=== PATIENT | male | born 1955 | race Hispanic/Latino ===

== ENCOUNTER 2019-02-22 06:08 | Day surgery (SDC) | payer MEDICARE, OTHER ==
[2019-02-22] MEDS ORDERED: ECOTRIN PO ONE (06:40)
[2019-02-22 07:20] LABS: Hematocrit 40.9 % (35.5-45.6); Hemoglobin 14.1 gm/dl (11.8-15.2); Mean Corpuscular HGB Conc 34 % (32-34); Mean Corpuscular Volume 91 fl (84-94); Platelet Count 193 K/mm3 (140-440); Red Blood Count 4.49 M/mm3 (3.65-5.03); Red Cell Distribution Width 14.4 % (13.2-15.2)
[2019-02-22] MEDS: NACL 0.9% 500 ML 500 ML IV SCH ×2 (07:22→08:59)
[2019-02-22 07:35] LABS: INR 0.95 (0.87-1.13)
[2019-02-22 07:36] LABS: Partial Thromboplastin Time 25.8 Sec. (24.2-36.6)
[2019-02-22 07:41] LABS: BUN/Creatinine Ratio 18; Blood Urea Nitrogen 18 mg/dL (9-20); Calcium 9.5 mg/dL (8.4-10.2); Hemolysis Index 10
[2019-02-22] MEDS ORDERED: HEPARIN/NS 5000 UNIT/500ML(CATH LAB) 1,000 ML IR ONE (08:14)
[2019-02-22 08:30] LABS: Platelet Estimate Consistent w Auto; RBC Morphology Normal; Total Cells Counted 100
[2019-02-22] MEDS: VERSED ONE ×2 (08:58→09:01)
[2019-02-22] MEDS: CALAN ONE ×2 (08:58→09:04)
[2019-02-22] MEDS: SUBLIMAZE ONE ×2 (08:58→09:01)
[2019-02-22] MEDS: XYLOCAINE 2% INFILTRATI ONE ×2 (08:58→09:02)
[2019-02-22] MEDS: HEPARIN 10,000 UNITS/10 ML ONE ×2 (08:59→09:04)
[2019-02-22] MEDS: NITROGLYCERIN SYRINGE 3 ML ONE ×2 (08:59→09:04)
[2019-02-22 11:48] VITALS: BP 139/90
--- NOTE | 2019-02-22 12:13 | Cardiac Catherization Report ---
ADDENDUM I directly supervised the administration of moderate sedation with fentanyl and Versed from 9:01 a.m. to 9:25 a.m. JOB# [id number] SBM/NTS
--- NOTE | 2019-02-22 12:36 | Cardiac Catherization Report ---
CARDIAC CATHETERIZATION INDICATION FOR PROCEDURE: The patient is a pleasant 63-year-old gentleman with recurrent chest pain, abnormal stress test, multiple risk factors on antianginal medications, referred for left heart catheterization. Risks, benefits, and potential alternatives explained at length prior to obtaining informed consent. PROCEDURE IN DETAIL: The patient was brought to the veterinarian laboratory animal care in a postabsorptive state, prepped and draped in sterile fashion. Barrett's test of the right hand was normal. A 2 mL of 2% lidocaine was used to anesthetize the right wrist. A standard 6-Icelandic hydrophilic sheath was used to cannulate the right radial artery via modified Seldinger technique. All exchanges were performed to exchange a J-tip guidewire. JL3.5 catheter used to engage the left main. No dampening or ventricularization. Cineangiography performed in all projections. A standard 6-Icelandic hydrophilic sheath used to cannulate the right radial artery via modified Seldinger technique. All exchanges performed to exchange a J-tip guidewire. JL3.5 catheter used to engage the left main. No dampening or ventricularization. Cineangiography performed in multiple projections. JR4 catheter used to cross the aortic valve under fluoroscopic guidance. Left ventriculography performed in 30 SALEH and 30 FAROESE projections via hand injections. Catheter flushed. Manual pullback performed with continuous pressure monitoring. Catheter used to engage the right coronary. No dampening or ventricularization. Cineangiography performed in all projections. JR4 catheter used to cross the aortic valve under fluoroscopic guidance. Left ventriculography performed in 30 SALEH and 30 FAROESE projections via hand injections. Catheter flushed. Manual pullback performed with continuous pressure monitoring. Catheter used to engage the right coronary. No dampening or ventricularization. Cineangiography performed in all projections. Next, due to recurrent symptoms and hypertension, we proceeded with root aortography with a pigtail catheter in the FAROESE projection. Next, catheter was removed from the body of wire, sheath removed. Manual pressure used to achieve hemostasis. DATA: Aortic pressure is 130/70, LV pressure is 130, LVEDP of 15 mmHg. Left ventriculography reveals normal systolic performance with estimated ejection fraction of 55-60%. No evidence of aortic stenosis. The patient remained in normal sinus rhythm throughout the procedure. CORONARY ANATOMY: This is a right dominant system. Left main and left circumflex have separate ostia off of the aortic root. LAD is a moderate sized vessel, courses anterior intergroove, wraps around the apex, no significant disease in the LAD or diagonal system. Left circumflex is a moderate sized vessel, courses AV groove, distally bifurcates in the posterior and posterolateral branches. No discrete stenosis noted. Right coronary is a moderate sized vessel, courses AV groove, distally bifurcates in the posterior and posterolateral branch. No discrete stenosis in the right dominant right coronary. Left ventriculography reveals normal systolic performance with estimated ejection fraction of 55-60%. No evidence of aortic stenosis. Root aortography reveals normal contour, no evidence of dissection or penetrating aortic ulcer. ASSESSMENT: 1. No angiographic evidence of significant epicardial coronary disease in this right dominant system. 2. Normal left ventricular systolic performance with estimated ejection fraction of 55-60%. 3. No evidence of aortic stenosis. 4. Normal root aortography without evidence of dissection, penetrating aortic ulcer, or aortic insufficiency. 5. Normal left ventricular end-diastolic pressure. The patient is clinically stable, chest pain free. Aggressive blood pressure control. Standard radial care. Results of procedure explained in length to the patient and family. All questions and concerns were addressed. Follow up with me in the office. JOB# [id number] CHITRA/ISABEL
--- NOTE | 2019-02-22 13:30 | Short Stay Summary ---
Short Stay Documentation Date of service: 02/22/19 - History H&P: obtained from office - Allergies and Medications Current Medications: Allergies Sulfa (Sulfonamide Antibiotics) Allergy (Intermediate, Verified 02/22/19 06:40) Hives Home Medications Medication Instructions Recorded Confirmed Last Taken Type Acyclovir [Zovirax Tab] 400 mg PO QDAY 02/22/19 02/22/19 1 Day Ago History ~02/21/19 Allopurinol [Zyloprim] 300 mg PO DAILY 02/22/19 02/22/19 1 Day Ago History ~02/21/19 Furosemide [Lasix TAB] 20 mg PO DAILY 02/22/19 02/22/19 1 Day Ago History ~02/21/19 Gabapentin [Neurontin] 300 mg PO BID 02/22/19 02/22/19 1 Day Ago History ~02/21/19 Simvastatin 02/22/19 1 Day Ago History ~02/21/19 Simvastatin 20 mg PO DAILY 02/22/19 02/22/19 1 Day Ago History ~02/21/19 Tamsulosin [Flomax] 0.4 mg PO QDAY 02/22/19 02/22/19 1 Day Ago History ~02/21/19 amLODIPine [Norvasc] 10 mg PO DAILY 02/22/19 02/22/19 1 Day Ago History ~02/21/19 metFORMIN XR [Glucophage XR] 500 mg PO DAILY 02/22/19 02/22/19 1 Day Ago History ~02/21/19 tiZANidine [Zanaflex 4mg TAB] 4 mg PO BID 02/22/19 02/22/19 1 Day Ago History ~02/21/19 - Brief post op/procedure progress note Date of procedure: 02/22/19 Pre-op diagnosis: abnormal stress test Post-op diagnosis: same Procedure: C - see dictated cath report Anesthesia: local Estimated blood loss: none Condition: stable - Disposition Condition at discharge: Good Disposition: DC-01 TO HOME OR SELFCARE - Discharge Diagnoses (1) Normal coronary arteries Status: Chronic (2) HTN (hypertension) Status: Chronic (3) Diabetes Status: Chronic (4) Obesity Status: Chronic Short Stay Discharge Plan Activity: advance as tolerated Diet: low fat, low cholesterol, low salt, diabetic Wound: open to air, keep clean and dry, per your surgeon's advice Follow up with: SKY SHERWOOD MD [Primary Care Provider] - 7 Days DA ROONEY MD [Staff Physician] - 7 Days
== END 2019-02-22 12:08 | disposition home or self-care (01) ==
LOC: CATHLABREC 06:08
PROVIDERS: ATTEND Internal Medicine
DX: R07.89 Other chest pain (principal); R94.39 Abnormal result of other cardiovascular function study; I10 Essential (primary) hypertension; E11.9 Type 2 diabetes mellitus without complications; E66.9 Obesity, unspecified; E78.00 Pure hypercholesterolemia, unspecified; M19.90 Unspecified osteoarthritis, unspecified site; Z80.8 Family history of malignant neoplasm of other organs or systems; Z79.899 Other long term (current) drug therapy; Z88.2 Allergy status to sulfonamides; Z79.84 Long term (current) use of oral hypoglycemic drugs; Z68.38 Body mass index [BMI] 38.0-38.9, adult; Z82.61 Family history of arthritis
CPT/HCPCS: 36415; 80048; 85007; 85025; 85610; 85730; 93005; 93010; 93458; 99156; 99157; C1894; J1644; J2250; J3010; J7040; Q9967

== ENCOUNTER 2019-03-14 08:10 | Outpatient (CLI) | payer MEDICARE, OTHER ==
--- NOTE | 2019-03-14 10:14 | Cat Scan Report ---
CTA CHEST: HISTORY: Dilated aortic root. COMPARISON: none. TECHNIQUE: Helical CT in 1.25mm intervals following IV contrast. Sagittal and coronal reformatted images. Rotational MIP images. FINDINGS: Contrast bolus is satisfactory. Thyroid gland: Normal. Tracheobronchial tree: Normal. Esophagus: Normal. Heart: Normal. Pericardium: Normal. Mediastinum: The ascending aorta is dilated up to 4.3 cm on the sagittal and coronal reformatted images. The descending thoracic aorta measures 2.7 cm at the same level. The aortic arch measures 3.4 cm. There is no evidence for significant atherosclerotic disease or dissection. A moderate hiatal hernia is noted posterior to the heart. No mediastinal mass or adenopathy. Lung Beauchamp: Normal. Pleural Spaces: Normal. Musculoskeletal: Intact. Moderate thoracic spondylosis. Limited images of the upper abdomen demonstrate one or 2 tiny calcified gallstones in the neck of the gallbladder. No biliary dilatation IMPRESSION: Mild dilatation of the ascending aorta measuring 4.3 cm. Moderate hiatal hernia. Cholelithiasis.
== END 2019-03-14 08:11 | disposition home or self-care (01) ==
LOC: CT 08:10
PROVIDERS: ATTEND Internal Medicine
DX: K44.9 Diaphragmatic hernia without obstruction or gangrene (principal); K80.20 Calculus of gallbladder without cholecystitis without obstruction; I77.810 Thoracic aortic ectasia; M47.814 Spondylosis without myelopathy or radiculopathy, thoracic region; E11.9 Type 2 diabetes mellitus without complications; I10 Essential (primary) hypertension; E78.00 Pure hypercholesterolemia, unspecified
CPT/HCPCS: 71275; Q9967